=== PATIENT | female | born 1960 | race Caucasian/White ===

== ENCOUNTER → 2016-08-25 | Day surgery (SDC) | payer OTHER ==
[2016-08-12 15:03] VITALS: Ht 157.5 cm; Wt 63.6 kg
[~2016-08-25] VITALS: Ht 157.5 cm; Wt 63.6 kg
[~2016-08-25] MED LIST: ALPR-385 PO; ALPR0.5T9 PO; ALPR1TAB3 PO; BUPIVACAINE 0.25% 2.5MG/ML PF 10 ML VIAL ONE; DIAZ10TA PO; FLUO10CA48 PO; FLUO40CA8 PO; GLUC10007 PO; IBUP1CAP9 PO; LIDOCAINE HCL 1% MPF 5 ML VIAL ONE; LINA1CAP2 PO; MELATAB2 PO; TRAZ100T29 PO
--- NOTE | 2016-08-25 13:02 | History & Physical Bridge - [place] ---
H&P Re-Evaluation Bridge Note: I have examined the patient, reviewed the History & Physical and in the interval since the performance of the History & Physical I have noted the following changes of clinical significance: No changes noted
[2016-08-25 13:22] VITALS: BP 99/59; PULSE 49; TEMP 37.1; O2SAT 98
--- NOTE | 2016-08-25 13:30 | Discharge Instructions ---
Discharge Instructions Visit Reason for Visit: Sacrococcygeal Disorders Discharge Discharge Diagnosis / Problem: coccyx pain Discharge Goals Goal(s): Decrease discomfort, Improve function Activity Recommendations Activity Limitations: resume your previous activity Anesthesia . Post Anesthesia Instructions: If you have had General Anesthesia or IV Sedation: * Do not drive today. * Resume driving when surgeon permits. * Do not make important decisions or sign legal documents today. * Call surgeon for: 1. Temperature elevations greater than 101 degrees F. 2. Uncontrollable pain. 3. Excessive bleeding. 4. Persistent nausea and vomiting. 5. Medication intolerance (nausea, vomiting or rash). * For nausea and vomiting use only clear liquids such as: tea, soda, bouillon until nausea subsides, then gradually increase diet as tolerated. * If you have any concerns or questions, call your surgeon's office. If physician is unavailable and it is an emergency, call 911 or go to the nearest emergency room. . Diet Recommendations Recommended Home Diet: resume previous diet Procedures Procedures Performed: Sacrococcygeal Ligament Injection Pending Studies Studies pending at discharge: no Medical Emergencies . Who to Call and When: Medical Emergencies: If at any time you feel your situation is an emergency, please call 911 immediately. . Non-Emergent Contact Non-Emergency issues call your: Specialist . . "Provider Documentation" section prepared by Kalia Contreras.
--- NOTE | 2016-08-25 14:15 | OPERATIVE REPORT ---
DATE OF OPERATION: 08/25/2016 PREOPERATIVE DIAGNOSIS: Coccydynia. POSTOPERATIVE DIAGNOSIS: Same. PROCEDURE: Sacrococcygeal ligament injection under fluoroscopic guidance. SURGEON: Dr. Kalia Contreras. INDICATIONS: The patient is a 56-year-old white female who has received SI joint injections 3 times since 2012 as she had a significant fall on the coccyx 4 years ago with angulation. She presents today for a sacrococcygeal ligament injection as this provides her with relief of intense pain. PHYSICAL EXAMINATION: Pleasant female seated comfortably in no apparent distress. She is without any motor or sensory deficits. Normal motor and sensory exam of her lower extremities. CONSENT: Verbal and written consent was obtained from the patient. Risks and benefits were reviewed. Risks include but are not limited to abscess and allergic reaction. The patient wishes to proceed. PROCEDURE: The patient was taken back to the special procedures room of the [facility] where she was maintained in a prone position. Backside was cleansed with Betadine x3 and a dry sterile dressing was applied. Fluoroscope was used to identify the sacrococcygeal junction which was angulated. Overlying skin anesthetized with 2.5 mL of lidocaine 1% with a 25 gauge 1.5-inch needle. A 25 gauge 3.5 inch spinal needle was then directed under fluoroscopic guidance into the sacrococcygeal ligament junction. It was then injected with 1.5 mL of bupivacaine 0.25% and 40 mg of Depo-Medrol. Injection was well tolerated. DISPOSITION: 1. The patient is taken out into the discharge recovery area where she will be discharged home once discharge criteria have been met. 2. Follow up in the [facility] office in 2-4 weeks. I attest to the content of the Intraoperative Record and any orders documented therein. Any exceptio ns are noted below.
== END | disposition home or self-care (01) ==
LOC: X.SURG 12:12
PROVIDERS: ATTEND Physical Medicine & Rehabilitation
DX: M53.3 Sacrococcygeal disorders, not elsewhere classified (principal)

== ENCOUNTER → 2016-11-17 | Outpatient (CLI) | payer OTHER ==
[~2016-11-17] MED LIST changes: -BUPIVACAINE 0.25% 2.5MG/ML PF 10 ML VIAL ONE; -LIDOCAINE HCL 1% MPF 5 ML VIAL ONE
== END | disposition home or self-care (01) ==
LOC: C.RDSM 14:09
PROVIDERS: ATTEND Orthopaedic Surgery Sports Medicine
DX: M25.561 Pain in right knee (principal); M25.562 Pain in left knee

== ENCOUNTER → 2017-03-03 | Outpatient (CLI) | payer OTHER ==
[~2017-03-03] MED LIST changes: -ALPR0.5T9 PO
== END | disposition home or self-care (01) ==
LOC: C.RDSM 13:22
PROVIDERS: ATTEND Physical Medicine & Rehabilitation
DX: S39.92XA Unspecified injury of lower back, initial encounter (principal); X58.XXXA Exposure to other specified factors, initial encounter; M53.3 Sacrococcygeal disorders, not elsewhere classified

== ENCOUNTER → 2017-04-13 | Day surgery (SDC) | payer OTHER ==
[2017-03-22 13:39] VITALS: Ht 157.5 cm; Wt 62.7 kg
[~2017-04-13] VITALS: Ht 157.5 cm; Wt 62.7 kg
[~2017-04-13] MED LIST changes: +BUPIVACAINE 0.25% 2.5MG/ML PF 10 ML VIAL ONE; +LIDOCAINE HCL 1% MPF 5 ML VIAL ONE; -LINA1CAP2 PO
[2017-04-13 15:04] VITALS: BP 100/61; PULSE 52; TEMP 36.5; O2SAT 99
--- NOTE | 2017-04-13 15:12 | Discharge Instructions ---
Discharge Instructions Date of Service Apr 13, 2017. Visit Reason for Visit: Sacroccygeal Disorder Discharge Discharge Diagnosis / Problem: tailbone pain Discharge Goals Goal(s): Decrease discomfort, Improve function Activity Recommendations Activity Limitations: resume your previous activity Anesthesia . Post Anesthesia Instructions: If you have had General Anesthesia or IV Sedation: * Do not drive today. * Resume driving when surgeon permits. * Do not make important decisions or sign legal documents today. * Call surgeon for: 1. Temperature elevations greater than 101 degrees F. 2. Uncontrollable pain. 3. Excessive bleeding. 4. Persistent nausea and vomiting. 5. Medication intolerance (nausea, vomiting or rash). * For nausea and vomiting use only clear liquids such as: tea, soda, bouillon until nausea subsides, then gradually increase diet as tolerated. * If you have any concerns or questions, call your surgeon's office. If physician is unavailable and it is an emergency, call 911 or go to the nearest emergency room. . Diet Recommendations Recommended Home Diet: resume previous diet Procedures Procedures Performed: SACROCOCCYGEAL LIGAMENT INJECTION Pending Studies Studies pending at discharge: no Medical Emergencies . Who to Call and When: Medical Emergencies: If at any time you feel your situation is an emergency, please call 911 immediately. . Non-Emergent Contact Non-Emergency issues call your: Specialist . . "Provider Documentation" section prepared by Kalia Contreras. .
--- NOTE | 2017-04-13 15:52 | OPERATIVE REPORT ---
DATE OF OPERATION: 04/13/2017 PREOPERATIVE DIAGNOSIS: Coccydynia with recent tailbone injury. POSTOPERATIVE DIAGNOSIS: Same. PROCEDURE: Sacrococcygeal ligament injection under fluoroscopic guidance. INDICATIONS: The patient is a 56-year-old white female who has received sacrococcygeal ligament injections in the past with relief of her coccydynia. She reports that she fell while on a vacation hiking, sustained tailbone trauma, little lower than her normal reach area and she is requesting a coccygeal ligament and sacrococcygeal ligament injection to provide her with relief of the intense pain that she has. PHYSICAL EXAMINATION: GENERAL: Pleasant female, seated comfortably in no apparent distress. MUSCULOSKELETAL: Lumbar paraspinal muscles were nontender. She is point tender to palpation over the coccyx area. CONSENT: Verbal and written consent was obtained from the patient. Risks and benefits were renewed. Risks include but are not limited to infection, abscess, allergic reaction. She wishes to proceed. PROCEDURE IN DETAIL: The patient was taken back to the special procedures room of the [facility] where she was maintained in a prone position. Backside was cleansed with Betadine x3 and a dry sterile dressing was applied. Fluoroscope was used to identify the sacral hiatus and the coccyx from a lateral view. She then was anesthetized with 4 mL, of the overlying skin. She then underwent injection after negative aspiration after fluoroscopic placement into the coccyx area that was angulated with 25 gauge 3.5 inch spinal needle and after negative aspiration, 40 mg of Depo-Medrol and 1 mL of bupivacaine 0.25% was injected and was well tolerated. DISPOSITION: 1. The patient is taken out into the discharge recovery area where she will discharged home once discharge criteria have been met. 2. She will follow up in the [facility] office in 2-4 weeks. I attest to the content of the Intraoperative Record and any orders documented therein. Any exception s are noted below.
== END | disposition home or self-care (01) ==
LOC: X.SURG 13:58
PROVIDERS: ATTEND Physical Medicine & Rehabilitation
DX: M53.3 Sacrococcygeal disorders, not elsewhere classified (principal)

== ENCOUNTER → 2017-08-04 | Day surgery (SDC) | payer OTHER ==
[2017-07-07 14:44] VITALS: Ht 157.5 cm; Wt 65.9 kg
[~2017-08-04] VITALS: Ht 157.5 cm; Wt 65.9 kg
[~2017-08-04] MED LIST changes: -ALPR-385 PO; +ALPR0.5T9 PO; -ALPR1TAB3 PO; +LACTATED RINGER'S 1000ML 1,000 ML IV SCH; +LACTATED RINGER'S 1000ML 500 ML IV SCH
--- NOTE | 2017-08-04 14:09 | Discharge Instructions ---
Discharge Instructions Date of Service Aug 04, 2017. Visit Reason for Visit: Sacrococcygeal Disorder Discharge Discharge Diagnosis / Problem: right leg pain Discharge Goals Goal(s): Decrease discomfort, Improve function Activity Recommendations Activity Limitations: resume your previous activity Anesthesia . Post Anesthesia Instructions: If you have had General Anesthesia or IV Sedation: * Do not drive today. * Resume driving when surgeon permits. * Do not make important decisions or sign legal documents today. * Call surgeon for: 1. Temperature elevations greater than 101 degrees F. 2. Uncontrollable pain. 3. Excessive bleeding. 4. Persistent nausea and vomiting. 5. Medication intolerance (nausea, vomiting or rash). * For nausea and vomiting use only clear liquids such as: tea, soda, bouillon until nausea subsides, then gradually increase diet as tolerated. * If you have any concerns or questions, call your surgeon's office. If physician is unavailable and it is an emergency, call 911 or go to the nearest emergency room. . Diet Recommendations Recommended Home Diet: resume previous diet Pending Studies Studies pending at discharge: no Medical Emergencies . Who to Call and When: Medical Emergencies: If at any time you feel your situation is an emergency, please call 911 immediately. . Non-Emergent Contact Non-Emergency issues call your: Specialist . . "Provider Documentation" section prepared by Kalia Contreras. .
[2017-08-04 14:23] VITALS: TEMP 37.2
[2017-08-04 14:40] VITALS: BP 106/73; PULSE 71; O2SAT 96
--- NOTE | 2017-08-04 14:59 | OPERATIVE REPORT ---
DATE OF OPERATION: 08/04/2017 PREOPERATIVE DIAGNOSIS: Coccydynia. POSTOPERATIVE DIAGNOSIS: Same. PROCEDURE: Sacrococcygeal ligament injection under fluoroscopic guidance. SURGEON: Dr. Kalia Contreras. INDICATIONS: The patient is a 57-year-old white female who underwent injections for coccydynia in the past with typically very good results. However, the pain she is having is terrible, it is functionally limiting to her. She is requesting an injection today. PHYSICAL EXAMINATION: She has point tenderness to palpation of her sacrococcygeal region, normal motor and sensory exam. CONSENT: Verbal and written consent was obtained from the patient. Risks and benefits were reviewed. Risks include but are not limited to abscess and allergic reaction. She wishes to proceed. PROCEDURE: The patient was taken back to the special procedures room of [facility]. She was maintained in a prone position. Backside was cleansed with Betadine x3 and a dry sterile dressing was applied. Fluoroscope was used to identify the sacrococcygeal ligament junction. The overlying skin was anesthetized with 4 mL of lidocaine 1% with a 25 gauge 1.5-inch needle. A 25 gauge 3.5 inch spinal needle was then used to inject after negative aspiration 40 mg of Depo-Medrol and 1 mL of bupivacaine 0.25%. Injection was well tolerated. DISPOSITION: 1. The patient is taken out into the discharge recovery area where she will be discharged home once discharge criteria have been met. 2. Follow up in the [facility] office in 2-4 weeks. I attest to the content of the Intraoperative Record and any orders documented therein. Any exception s are noted below.
== END | disposition home or self-care (01) ==
LOC: X.SURG 13:14
PROVIDERS: ATTEND Physical Medicine & Rehabilitation
DX: M53.3 Sacrococcygeal disorders, not elsewhere classified (principal)

== ENCOUNTER → 2017-10-20 | Outpatient (CLI) | payer OTHER ==
[~2017-10-20] MED LIST changes: -BUPIVACAINE 0.25% 2.5MG/ML PF 10 ML VIAL ONE; -LACTATED RINGER'S 1000ML 1,000 ML IV SCH; -LACTATED RINGER'S 1000ML 500 ML IV SCH; -LIDOCAINE HCL 1% MPF 5 ML VIAL ONE
== END | disposition home or self-care (01) ==
LOC: C.PAPS 09:08
PROVIDERS: ATTEND Physician Assistant
DX: Z12.4 Encounter for screening for malignant neoplasm of cervix (principal); N76.0 Acute vaginitis

== ENCOUNTER → 2017-11-14 | Outpatient (CLI) | payer OTHER ==
--- NOTE | 2017-11-14 15:59 | DIAGNOSTIC IMAGING REPORT ---
MRI OF THE BRAIN WITHOUT CONTRAST CLINICAL HISTORY: R51 Chronic daily [id number] Memory [id number] Balance problems COMPARISON STUDY: None. FINDINGS: Sagittal T1, axial diffusion, proton density and T2 weighted axial, coronal FLAIR, and axial T1-weighted images were acquired. No intra or extra-axial mass lesions are visualized Axial diffusion-weighted images reveal no evidence of acute or subacute infarction. There is no evidence of ventricular dilatation. Proton density T2-weighted and FLAIR images reveal a few nonspecific foci of increased T2 and FLAIR signal within the white matter, the largest measuring 3 mm and located within the right frontal region. These are likely a small vessel basis, but also have been reported in patients with chronic headaches. There are no abnormal flow voids. IMPRESSION: 1. No acute intracranial findings 2. No evidence of acute or subacute infarction 3. No evidence of intracranial mass in this noncontrast study 4. Minor foci of increased T2 signal within the white matter Electronically signed by: Mohit Song M.D. 11/14/2017 3:58 PM Dictated Date/Time: 11/14/2017 3:56 PM
== END | disposition home or self-care (01) ==
LOC: C.MRIBC 13:51
PROVIDERS: ATTEND Psychiatry & Neurology Neurology
DX: R41.3 Other amnesia (principal); R26.89 Other abnormalities of gait and mobility; R51 Headache

== ENCOUNTER → 2017-11-17 | Outpatient (CLI) | payer OTHER | END | disposition home or self-care (01) | LOC: C.PATHSPEC 17:00 | PROVIDERS: ATTEND Obstetrics & Gynecology | DX: R87.619 Unspecified abnormal cytological findings in specimens from cervix uteri (principal); N72 Inflammatory disease of cervix uteri; C54.1 Malignant neoplasm of endometrium ==

== ENCOUNTER → 2017-11-24 | Outpatient (CLI) | payer OTHER | END | disposition home or self-care (01) | LOC: C.RDSM 11:50 | PROVIDERS: ATTEND Orthopaedic Surgery Sports Medicine | DX: M25.561 Pain in right knee (principal); M25.562 Pain in left knee ==